=== PATIENT | female | born 1940 | race Caucasian/White ===

== ENCOUNTER → 2021-09-19 | Outpatient (CLI) | payer BC, MEDICARE, OTHER ==
[~2021-09-19] MED LIST: ATENOLOL; BENADRYL25 MG PO; CETIRIZINE PO; CRANBERRY CONC500 MG PO; EFFEXOR-XR150 MG PO; GABAPENTIN600 MG PO; LASIX 80MG TABL80 MG PO; LEVAQUIN 5500 MG/TAB PO; LUTEIN20 MG PO; LYRICA50 MG PO; NEXIUM40 MG PO; POTASSIUM CHLO10 ME2 PO; STOOL SOFTENER100 MG PO; VANCOMYCIN PO; VENTOLIN0.09 MG IH; VOLTAREN50 MG PO; ZANAFLEX4 M1 PO; ZANTAC 150150 MG PO; ZOCOR 20MG20 MG PO
== END ==
LOC: MC.RAD 10:00
DX: R92.0 Mammographic microcalcification found on diagnostic imaging of breast (principal)